=== PATIENT | female | born 1960 | race Two or more races ===

== ENCOUNTER 2016-08-13 18:04 | Emergency (ER) | payer OTHER ==
[~2016-08-13] VITALS: Ht 157.5 cm; Wt 73.5 kg
[2016-08-13 20:17] VITALS: BP 164/51
== END 2016-08-13 20:53 | disposition home or self-care (01) ==
LOC: ER 18:10
DX: S16.1XXA Strain of muscle, fascia and tendon at neck level, initial encounter (principal); S30.0XXA Contusion of lower back and pelvis, initial encounter; W01.0XXA Fall on same level from slipping, tripping and stumbling without subsequent striking against object, initial encounter; Y93.89 Activity, other specified; Y92.89 Other specified places as the place of occurrence of the external cause; Y99.8 Other external cause status
CPT/HCPCS: 72040; 72100